=== PATIENT | male | born 1955 | race Caucasian/White ===

== ENCOUNTER 2021-07-09 23:27 | Emergency (ER) | payer BC ==
[2021-07-10] MEDS ORDERED: HYDROmorphone 1 MG/ML Syringe IM ONE (00:11)
[2021-07-10] MEDS ORDERED: Ketorolac 30 MG/ML SDV IM ONE (00:13)
== END 2021-07-10 02:28 | disposition home or self-care (01) ==
LOC: JP.ED 23:27
DX: S39.011A Strain of muscle, fascia and tendon of abdomen, initial encounter (principal)
CPT/HCPCS: 72170; 96372; 99282; 99283; J1885